=== PATIENT | male | born 1960 | race African-American/Black ===

== ENCOUNTER 2017-03-14 07:53 | Emergency (ER) | payer SELFPAY ==
[2017-03-14] MEDS ORDERED: ASPIRIN 81 MG TABLET, CHEWABLE PO ONE (07:55)
--- NOTE | 2017-03-14 08:18 | EKG REPORT ---
SEVERITY:- OTHERWISE NORMAL ECG - SINUS BRADYCARDIA : Confirmed by: Moreno Blue MD 14-Mar-2017 08:17:47
[2017-03-14 08:28] LABS: ABSOLUTE LYMPHOCYTES (AUTO) 1.3 10^3/uL (0.5-4.7); ABSOLUTE MONOCYTES (AUTO) 0.4 10^3/uL (0.1-1.4); ABSOLUTE NEUT (AUTO) 2.6 10^3/uL (1.7-8.2); BASOPHILS % (AUTO) 0.6 % (0-2); EOSINOPHILS % (AUTO) 0.8 % (0-6); HEMATOCRIT 36.8 % (37.9-51.0); HGB HCT DIFFERENCE -0.8; LYMPHOCYTES % (AUTO) 29.3 % (13-45); MEAN CORPUSCULAR HEMOGLOBIN 27.4 pg (27.0-33.4); MEAN CORPUSCULAR HGB CONC 32.5 g/dL (32.0-36.0); MEAN CORPUSCULAR VOLUME 84 fl (80-97); MONOCYTES % (AUTO) 9.9 % (3-13); RED BLOOD COUNT 4.37 10^6/uL (4.35-5.55); RED CELL DISTRIBUTION WIDTH 15.2 % (11.5-14.0); SEGMENTED NEUTROPHILS % (AUTO) 59.4 % (42-78); WHITE BLOOD COUNT 4.3 10^3/uL (4.0-10.5)
--- NOTE | 2017-03-14 08:42 | ER Document Report ---
ED General - General Mode of Arrival: Medic Information source: Patient, Emergency Med Personnel, [facility] Records TRAVEL OUTSIDE OF THE [place] 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 Patient describes the pain as a tightness. Patient states the pain is exacerbated with movement, specifically trunk rotation. Patient also admits to generalized muscle cramping and a lot of burping. EMS administered 2 nitroglycerin and 325 mg of aspirin en route, which the patient believes to have helped improved his pain. Patient also reports taking Xarelto for history of DVT, but he has not taken this since March 08 secondary to running out. Patient admits that he has picked up smoking cigarettes on occasion, but he does not buy his own. Patient also reports an increase in marijuana use. ( LINDA TOVAR) - Related Data Allergies/Adverse Reactions: shellfish derived Allergy (Verified 03/14/17 08:08) Past Medical History - Social History Smoking Status: Current Some Day Smoker Drug Abuse: Marijuana Family History: Reviewed & Not Pertinent Patient has suicidal ideation: No Patient has homicidal ideation: No - Past Medical History Cardiac Medical History: Reports: Hx DVT, Hx Hypertension Pulmonary Medical History: Reports: Hx COPD Neurological Medical History: Reports: Hx Migraine Past Surgical History: Reports: Hx Testicular Surgery - "as a child" - Immunizations Hx Diphtheria, Pertussis, Tetanus Vaccination: Yes - <5 years <LINDA TOVAR - Last Filed: 03/14/17 08:45> Review of Systems - Review of Systems Constitutional: No symptoms reported EENT: No symptoms reported Cardiovascular: See HPI, Chest pain - Tight Respiratory: No symptoms reported Gastrointestinal: See HPI, Other - Burping Genitourinary: No symptoms reported Male Genitourinary: No symptoms reported Musculoskeletal: See HPI, Other - Muscle cramping Skin: No symptoms reported Hematologic/Lymphatic: No symptoms reported Neurological/Psychological: No symptoms reported -: Yes All other systems reviewed and negative <LALINDA - Last Filed: 03/14/17 08:45> - Review of Systems Genitourinary: Other - Patient reports he has to get up at night several times to urinate. It is not large volume.. denies: No symptoms reported <NORBERTO OWUSU - Last Filed: 03/14/17 11:07> Physical Exam - General General appearance: Alert - HEENT Head: Normocephalic, Atraumatic Eyes: Normal Pupils: PERRL - Respiratory Respiratory status: No respiratory distress Chest status: Other - Mild right anterior chest wall tenderness to palpation Breath sounds: Normal - Cardiovascular Rhythm: Regular Heart sounds: Normal auscultation Murmur: No - Abdominal Distension: No distension Bowel sounds: Normal Tenderness: Tender - Right upper quadrant and epigastric tenderness to palpation Organomegaly: No organomegaly - Back Back: Normal, Nontender - Extremities General upper extremity: Normal inspection, Nontender General lower extremity: Normal inspection, Nontender - Neurological Neuro grossly intact: Yes Cognition: Normal Orientation: AAOx4 [place] Coma Scale Eye Opening: Spontaneous Man Coma Scale Verbal: Oriented [place] Coma Scale Motor: Obeys Commands [place] Coma Scale Total: 15 Speech: Normal - Psychological Associated symptoms: Normal affect, Normal mood - Skin Skin Temperature: Warm Skin Moisture: Dry Skin Color: Normal <LINDA TOVAR - Last Filed: 03/14/17 08:45> Course - Laboratory Result Diagrams: 03/14/17 08:08 03/14/17 08:08 <LINDA TOVAR - Last Filed: 03/14/17 08:45> - Laboratory Result Diagrams: 03/14/17 08:08 03/14/17 08:08 - Diagnostic Test Radiology reviewed: Image reviewed, Reports reviewed - Gallbladder ultrasound was unremarkable. - EKG Interpretation by Hi EKG shows normal: Sinus rhythm, [place], Intervals, QRS Complexes, ST-T Waves Rate: Bradycardia - 49 <NORBERTO OWUSU - Last Filed: 03/14/17 11:07> - Re-evaluation Re-evalutation: 03/14/17 11:03 After the GI cocktail the patient's symptoms eased off. His epigastric area is not tender palpate at this time. 03/14/17 11:07 The patient states he was given a 1 year's description of Xarelto. He finished it 6 days ago. He does not know if he was supposed to continue it. It has been 1 year since he developed a DVT while he was intubated and on a stretcher for a lengthy period of time. (NORBERTO OWUSU) - Vital Signs Vital signs: Temp Pulse Resp BP Pulse Ox 98.4 F 49 L 20 136/88 H 96 03/14/17 07:59 03/14/17 07:59 03/14/17 09:01 03/14/17 09:00 03/14/17 09:01 - Laboratory Laboratory results interpreted by wa: 03/14/17 03/14/17 08:08 08:08 Hgb 12.0 L Hct 36.8 L RDW 15.2 H Sodium 147.0 H Potassium 3.5 L Creatine Kinase 249 H Discharge <LINDA TOVAR - Last Filed: 03/14/17 08:45> <NORBERTO OWUSU - Last Filed: 03/14/17 11:07> - Discharge Clinical Impression: Chest wall pain, Epigastric abdominal pain GERD (gastroesophageal reflux disease) Qualifiers: Esophagitis presence: esophagitis presence not specified Qualified Code(s): K21.9 - Gastro-esophageal reflux disease without esophagitis Condition: Stable Disposition: HOME, SELF-CARE Additional Instructions: Reflux Disease (GERD): Gastro-Esophageal Reflux Disease (GERD) is caused by stomach acid refluxing back up into the esophagus. The valve at the end of the esophagus may be weak. This is common in persons with a hiatal hernia. GERD symptoms can include indigestion, chest pain, heartburn, or food "sticking." Certain foods, alcohol, and aspirin can make GERD worse. Treatment depends on the severity. Usually, antacids or acid-suppressing medicines are used. When the esophagus is acutely inflamed, the physician will often prescribe membrane-protective drugs such as Carafate. Some patients benefit from medication such as Reglan that tightens the valve at the top of the stomach. Avoid those foods that bring on your symptoms. For many people, these foods are coffee, chocolate, onions, garlic, and carbonated drinks. Don't use alcohol, aspirin, caffeine, or tobacco. Don't eat late at night -- within 4 hours of bedtime. Don't over-eat. If necessary, elevate the head of your bed about 4 inches so that stomach acid will not roll up into your esophagus. Call the doctor if you develop severe chest pain, inability to swallow fluids, fever, or worsening symptoms. EAT A BLAND DIET. TAKE ANTI-ACIDS BETWEEN MEALS AND AT BEDTIME. TAKE PRILOSEC OTC ONCE DAILY FOR THE NEXT TWO WEEKS. FOLLOW UP WITH YOUR DOCTOR NEXT WEEK FOR RECHECK AND TO DISCUSS THE XARELTO. RETURN TO THE EMERGENCY ROOM IF ANY NEW OR WORSENING SYMPTOMS. Scribe Attestation: 03/14/17 11:07 I personally performed the services described in the documentation, reviewed and edited the documentation which was dictated to the scribe in my presence, and it accurately records my words and actions. (NORBERTO OWUSU) Scribe Documentation - Scribe Written by [employer]:: Linda Tovar 03/14/2017 [id number] acting as scribe for :: Jake <LINDA TOVAR - Last Filed: 03/14/17 08:45>
[2017-03-14 08:45] LABS: ALANINE AMINOTRANSFERASE 21 U/L (21-72); ALBUMIN 3.8 g/dL (3.5-5.0); ALKALINE PHOSPHATASE 61 U/L (38-126); ANION GAP 13 (5-19); ASPARTATE AMINO TRANSFERASE 29 U/L (17-59); BILIRUBIN,DIRECT 0.3 mg/dL (0.0-0.4); BILIRUBIN,TOTAL 0.6 mg/dL (0.2-1.3); BLOOD UREA NITROGEN 11 mg/dL (7-20); CALCIUM 9.2 mg/dL (8.4-10.2); CARBON DIOXIDE 28 mmol/L (22-30); CHLORIDE 106 mmol/L (98-107); CREATINE KINASE 249 U/L (55-170); CREATININE RESULT 1.12 mg/dL (0.52-1.25); GLUCOSE 87 mg/dL (75-110); POTASSIUM 3.5 mmol/L (3.6-5.0); TOTAL PROTEIN 7.2 g/dL (6.3-8.2)
[2017-03-14] MEDS ORDERED: MAG HYDROX/AL HYDROX/SIMETH SUSP 30 ML UDCUP PO ONE (08:54)
[2017-03-14] MEDS ORDERED: LIDOCAINE 2% VISCOUS SOLN 20 ML UDCUP PO ONE (08:54)
[2017-03-14 08:56] LABS: CREATINE KINASE MB 1.88 ng/mL (<4.55)
[2017-03-14 08:57] LABS: TROPONIN I < 0.012 ng/mL
[2017-03-14 09:05] LABS: ADD ON TESTING BLD IN LAB ACKNOWLEDGE
[2017-03-14 11:32] VITALS: BP 128/89
== END 2017-03-14 11:32 | disposition home or self-care (01) ==
LOC: ER 07:53
DX: R07.89 Other chest pain (principal); R10.13 Epigastric pain; R25.2 Cramp and spasm; K21.9 Gastro-esophageal reflux disease without esophagitis; F17.200 Nicotine dependence, unspecified, uncomplicated; I10 Essential (primary) hypertension; Z79.02 Long term (current) use of antithrombotics/antiplatelets; Z86.718 Personal history of other venous thrombosis and embolism
CPT/HCPCS: 93005; 99285; 36415; 82553; 82550; 83690; 83735; 85025; 80053; 84484; 71010; 76705; 93010; J3490

== ENCOUNTER 2018-09-15 23:21 | Emergency (ER) | payer SELFPAY ==
[2018-09-15] MEDS ORDERED: IBUPROFEN 600 MG TABLET PO ONE (23:55)
--- NOTE | 2018-09-16 00:01 | ER Document Report ---
ED General - General Chief Complaint: Flu Symptoms Stated Complaint: HEADACHE, FEVER Time Seen by Provider: 09/15/18 23:55 Notes: 58-year-old male presents with 24 hours of abrupt onset fever chills fatigue headache abdominal cramping, and stuffy nose. Taking Tylenol. Constant and moderate. No shortness of breath or chest pain. No vomiting. Denies neck stiffness or photophobia. TRAVEL OUTSIDE OF THE [place] IN LAST 30 DAYS: No - Related Data Allergies/Adverse Reactions: shellfish derived Allergy (Verified 03/14/17 08:08) Past Medical History - Social History Smoking Status: Unknown if Ever Smoked Family History: Reviewed & Not Pertinent Patient has suicidal ideation: No Patient has homicidal ideation: No - Past Medical History Cardiac Medical History: Reports: Hx DVT, Hx Hypertension Denies: Hx Coronary Artery Disease, Hx Heart Attack Pulmonary Medical History: Denies: Hx Asthma, Hx Bronchitis, Hx COPD, Hx Pneumonia Neurological Medical History: Reports: Hx Migraine. Denies: Hx Cerebrovascular Accident, Hx Seizures Endocrine Medical History: Denies: Hx Diabetes Mellitus Type 1, Hx Diabetes Mellitus Type 2 Renal/ Medical History: Denies: Hx Peritoneal Dialysis Musculoskeletal Medical History: Denies Hx Arthritis Past Surgical History: Reports: Hx Testicular Surgery - "as a child" - Immunizations Hx Diphtheria, Pertussis, Tetanus Vaccination: Yes - <5 years Review of Systems - Review of Systems Notes: REVIEW OF SYSTEMS GEN: Fever myalgias malaise ENT: Sore throat, positive nasal discharge, no ear pain EYES: Denies blurry vision, eye pain, discharge CV: Denies chest pain, palpitations, edema RESP: Denies cough, shortness of breath, wheezing GI: Denies abdominal pain, nausea, vomiting, diarrhea MSK: Denies joint pain/swelling, edema, SKIN: Denies rash, skin lesions LYMPH: Denies swollen glands/lymph nodes NEURO: Denies headache, focal weakness or numbness, dizziness PSYCH: Denies depression, suicidal or homicidal ideation PHYSICAL EXAMINATION General: No acute distress, well-nourished Head: Atraumatic, normocephalic ENT: Mouth normal, oropharynx moist, mild erythema but no exudates or tonsillar enlargement Eyes: Conjunctiva normal, pupils equal, lids normal Neck: No JVD, supple, no guarding shakes his head to questions without apparent guarding. CVS: Normal rate, regular rhythm, no murmurs Resp: No resp distress, equal and normal breath sounds bilaterally GI: Nondistended, soft, no tenderness to palpation, no rebound or guarding Ext: No deformities, no edema, normal range of motion in upper and lower ext Back: No CVA or midline TTP Skin: No rash, warm Lymphatic: No lymphadeopathy noted Neuro: Awake, alert. Face symmetric. GCS 15. Physical Exam - Vital signs Vitals: Temp Pulse Resp BP Pulse Ox 99.4 F 83 22 H 137/97 H 96 09/15/18 23:31 09/15/18 23:31 09/15/18 23:31 09/15/18 23:31 09/15/18 23:31 Course - Re-evaluation Re-evalutation: 09/16/18 00:01 Influenza-like illness, doubt meningitis due to lack of meningismus and true fever at this time. Last Tylenol was 4 hours ago. Will give Motrin and test for influenza. No symptoms of pneumonia. Normal saturation. 09/16/18 01:04 Flu negative, reevaluated and doing well. Likely viral syndrome will discharge with Motrin. Was given return precautions including those for meningoencephalitis although again, I think this is very unlikely thus did not offer a lumbar puncture at this juncture. I have discussed with the patient there likely diagnosis, aftercare plan, follow -up plans and my usual and customary return precautions. They verbalized understanding of this. - Vital Signs Vital signs: Temp Pulse Resp BP Pulse Ox 99.4 F 83 22 H 137/97 H 96 09/15/18 23:31 09/15/18 23:31 09/15/18 23:31 09/15/18 23:31 09/15/18 23:31 Discharge - Discharge Clinical Impression: Viral syndrome Condition: Good Disposition: HOME, SELF-CARE Instructions: Fever ([facility]), Headache ([facility]) Additional Instructions: Please take ibuprofen every 4 hours, keep well hydrated, and return to the emergency room if your headache worsens, your neck becomes stiff have any sensitivity to light or generally not feeling better in 1-2 days.
[2018-09-16 00:58] LABS: A TYPE INFLUENZA AG NEGATIVE (NEGATIVE); B INFLUENZA AG NEGATIVE (NEGATIVE)
[2018-09-16 01:44] VITALS: BP 130/80
== END 2018-09-16 01:42 | disposition home or self-care (01) ==
LOC: ER 23:21
DX: B34.9 Viral infection, unspecified (principal); R51 Headache; R07.9 Chest pain, unspecified; R53.83 Other fatigue; R10.9 Unspecified abdominal pain; R09.89 Other specified symptoms and signs involving the circulatory and respiratory systems; I10 Essential (primary) hypertension; J02.9 Acute pharyngitis, unspecified
CPT/HCPCS: 87804; 99283

== ENCOUNTER 2018-10-10 17:15 | Emergency (ER) | payer SELFPAY ==
[2018-10-10] MEDS ORDERED: BUTALB/ACETAMINOPHEN/CAFFEINE 1 TAB EACH PO ONE (18:25)
[2018-10-10] MEDS ORDERED: AMLODIPINE BESYLATE 10 MG TABLET PO ONE (18:25)
--- NOTE | 2018-10-10 18:25 | ER Document Report ---
ED General - General Chief Complaint: High Blood Pressure Stated Complaint: HIGH BLOOD PRESSURE Time Seen by Provider: 10/10/18 18:00 Notes: Patient is a 58-year-old male with history of hypertension that presents to the emergency department for chief complaint of high blood pressure and headache. Patient states he has been having a gradual onset of a headache over the past week, has been out of his blood pressure medications for approximately 10 days he takes amlodipine 10 mg daily, he does have his metoprolol 25 mg, but has been out of the amlodipine. He describes the headache is mainly frontal, denies blurred vision, has had some nausea but no vomiting. Denies any chest pain, shortness of breath, difficulty breathing, confusion, changes in urinary patterns, denies foam in the urine, or dark urine. Past Medical History: Hypertension Past Surgical History: Denies pertinent surgical history or recent surgeries Social History: Admits to smoking cigarettes daily, denies alcohol or illicit drug use. 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 Family History: Reviewed and noncontributory for presenting illness Allergies: Reviewed, see documented allergy list. REVIEW OF SYSTEMS: Other than noted above, the 12 point review of systems was reviewed with the patient and were negative, all pertinent findings are included in the HPI. PHYSICAL EXAMINATION: Vital signs reviewed, nursing noted reviewed. GENERAL: Well-appearing, well-nourished and in no acute distress. HEAD: Atraumatic, normocephalic. EYES: Eyes appear normal, extraocular movements intact, sclera anicteric, conjunctiva are normal. PERRLA ENT: nares patent, oropharynx clear without exudates. Moist mucous membranes. NECK: Normal range of motion, supple without lymphadenopathy LUNGS: Breath sounds clear to auscultation bilaterally and equal. No wheezes rales or rhonchi. HEART: Regular rate and rhythm without murmurs ABDOMEN: Soft, nontender, normoactive bowel sounds. No rebound, guarding, or rigidity. No masses appreciated. EXTREMITIES: Nontender, good range of motion, no pitting or edema. NEUROLOGICAL: No focal neurological deficits. Moves all extremities spontaneously Motor and sensory grossly intact on exam. PSYCH: Normal mood, normal affect. SKIN: Warm, Dry, normal turgor, no rashes or lesions noted on exposed skin TRAVEL OUTSIDE OF THE [place] IN LAST 30 DAYS: No - Related Data Allergies/Adverse Reactions: shellfish derived Allergy (Verified 03/14/17 08:08) Past Medical History - Social History Smoking Status: Current Some Day Smoker Chew tobacco use (# tins/day): No Frequency of alcohol use: None Drug Abuse: None Family History: Reviewed & Not Pertinent Patient has suicidal ideation: No Patient has homicidal ideation: No - Past Medical History Cardiac Medical History: Reports: Hx DVT, Hx Hypertension Denies: Hx Coronary Artery Disease, Hx Heart Attack Pulmonary Medical History: Denies: Hx Asthma, Hx Bronchitis, Hx COPD, Hx Pneumonia Neurological Medical History: Reports: Hx Migraine. Denies: Hx Cerebrovascular Accident, Hx Seizures Endocrine Medical History: Denies: Hx Diabetes Mellitus Type 1, Hx Diabetes Mellitus Type 2 Renal/ Medical History: Denies: Hx Peritoneal Dialysis Musculoskeletal Medical History: Denies Hx Arthritis Past Surgical History: Reports: Hx Testicular Surgery - "as a child" - Immunizations Hx Diphtheria, Pertussis, Tetanus Vaccination: Yes - <5 years Course - Re-evaluation Re-evalutation: Patient seen and examined vital signs reviewed. Patient was evaluated and treated as appropriate for the patient's presenting symptoms and complaint, with consideration of any critical or life threatening conditions that may be associated with their obtained history and exam as noted above. Patient was treated with Fioricet and amlodipine 10 mg The patient was re-evaluated and was improved and stable Evaluation was most consistent with hypertension, headache, patient will be prescribed Fioricet for the headache, and ultimately prescribed 2 weeks of amlodipine so he can follow-up with his primary care physician. Plan of care was discussed with the patient at this point, after careful consideration I feel that that patient can be discharged from the emergency department, the patient was educated treatments and reasons to return to the emergency department based on their presumed diagnosis as noted above, they were advised to followup with a primary care physician in 2-3 days. Patient was agreeable to plan of care. *Note is created using voice recognition software and may contain spelling, syntax or grammatical errors. Discharge - Discharge Clinical Impression: Hypertension Qualifiers: Hypertension type: unspecified Qualified Code(s): I10 - Essential (primary) hypertension Headache Qualifiers: Headache chronicity pattern: unspecified pattern Intractability: not intractable Condition: Stable Disposition: HOME, SELF-CARE Instructions: High Blood Pressure, Requiring Treatment ([facility]), Headache ([facility]) Prescriptions: Amlodipine Besylate [Norvasc 10 mg Tablet] 10 mg PO DAILY #14 tablet Butalb/Acetaminophen/Caffeine [Fioricet (50-325-40 mg) Tablet] 1 tab PO Q6H PRN #12 tab PRN Reason: headache Referrals: [facility] [Provider Group] - Follow up in 3-5 days
[2018-10-10 19:48] VITALS: BP 169/112
== END 2018-10-10 19:45 | disposition home or self-care (01) ==
LOC: ER 17:15
DX: I10 Essential (primary) hypertension (principal); T46.1X6A Underdosing of calcium-channel blockers, initial encounter; Z91.128 Patient's intentional underdosing of medication regimen for other reason; Z91.14 Patient's other noncompliance with medication regimen; Z79.899 Other long term (current) drug therapy; R51 Headache; R11.0 Nausea; F17.210 Nicotine dependence, cigarettes, uncomplicated; F17.200 Nicotine dependence, unspecified, uncomplicated; Z91.013 Allergy to seafood
CPT/HCPCS: 99283; 82962; J3490

== ENCOUNTER 2019-09-16 16:15 | Emergency (ER) | payer SELFPAY ==
--- NOTE | 2019-09-16 17:05 | ER Document Report ---
ED Medical Screen (RME) - General Chief Complaint: Low Back Pain Stated Complaint: LOWER BACK PAIN Time Seen by Provider: 09/16/19 16:57 Mode of Arrival: Wheelchair Information source: Patient Notes: 59-year-old male presented to ED for complaint of back pain since Friday. He states a week or so ago he had a pulling sensation in his groin when he lifted something heavy. He states when that went away then he started with the low back pain. He states he does have a history of chronic back pain and high blood pressure. He states for a long time he has had some urination without feeling like he was urinating until he started urinating. This is not new. He does state he smokes a half a pack a day does not drink alcohol and smokes a little weed. I have greeted and performed a rapid initial assessment of this patient. A comprehensive ED assessment and evaluation of the patient, analysis of test results and completion of medical decision making process will be conducted by a n additional ED providers. TRAVEL OUTSIDE OF THE [place] IN LAST 30 DAYS: No - Related Data Allergies/Adverse Reactions: shellfish derived Allergy (Verified 03/14/17 08:08) Home Medications: Amlodipine, Metoprolol Past Medical History - Past Medical History Cardiac Medical History: Reports: Hx DVT, Hx Hypertension Denies: Hx Coronary Artery Disease, Hx Heart Attack Pulmonary Medical History: Denies: Hx Asthma, Hx Bronchitis, Hx COPD, Hx Pneumonia Neurological Medical History: Reports: Hx Migraine. Denies: Hx Cerebrovascular Accident, Hx Seizures Endocrine Medical History: Denies: Hx Diabetes Mellitus Type 1, Hx Diabetes Mellitus Type 2 Renal/ Medical History: Denies: Hx Peritoneal Dialysis Musculoskeltal Medical History: Denies Hx Arthritis Past Surgical History: Reports: Hx Testicular Surgery - "as a child" - Immunizations Hx Diphtheria, Pertussis, Tetanus Vaccination: Yes - <5 years Physical Exam - Vital signs Vitals: Temp Pulse Resp BP Pulse Ox 98.6 F 58 L 20 115/79 97 09/16/19 16:19 09/16/19 16:19 09/16/19 16:19 09/16/19 16:19 09/16/19 16:19 Course - Vital Signs Vital signs: Temp Pulse Resp BP Pulse Ox 98.6 F 58 L 20 115/79 97 09/16/19 16:19 09/16/19 16:19 09/16/19 16:19 09/16/19 16:19 09/16/19 16:19
[2019-09-16 17:34] LABS: APPEARANCE,URINE CLEAR; BILIRUBIN,URINE NEGATIVE (NEGATIVE); COLOR,URINE YELLOW; GLUCOSE, URINE NEGATIVE (NEGATIVE); KETONES,URINE NEGATIVE (NEGATIVE); PROTEIN,URINE NEGATIVE (NEGATIVE)
--- NOTE | 2019-09-16 17:34 | RADIOLOGY REPORT (SQ) ---
EXAM DESCRIPTION: L SPINE WHOLE COMPLETED DATE/TIME: 09/16/2019 5:23 pm REASON FOR STUDY: right back pain COMPARISON: None. NUMBER OF VIEWS: Five views including obliques. TECHNIQUE: AP, lateral, oblique, and sacral radiographic images acquired of the lumbar spine. LIMITATIONS: None. FINDINGS: MINERALIZATION: Normal. SEGMENTATION: Normal. Partial sacralization of L5, in which the left transverse pseudoarticulates wi th the sacrum. ALIGNMENT: Left lateral tilt. VERTEBRAE: Maintained height. No fracture or worrisome bone lesion. DISCS: Moderate L4-5 and mild L1-2 thru L3-4 intervertebral disc space narrowing with corresponding m arginal osteophyte formation. POSTERIOR ELEMENTS: Pedicles and facets are intact. No pars defect or posterior arch defects. HARDWARE: None in the spine. PARASPINAL SOFT TISSUES: Normal. PELVIS: Intact as visualized. No fractures or worrisome bone lesions. SI joints intact. OTHER: No other significant finding. IMPRESSION: No acute bone abnormality of the lumbar spine. Transitional anatomy with partial sacralization of L5 and multilevel spondylosis greatest at L4-5. TECHNICAL DOCUMENTATION: JOB ID: [id number]- All Rights Reserved Reading location - IP/workstation name: [email or web address]
[2019-09-16] MEDS ORDERED: CYCLOBENZAPRINE HCL 10 MG TABLET PO ONE (19:51)
[2019-09-16] MEDS ORDERED: OXYCODONE-ACETAMINOPHEN 5-325 MG TABLET PO ONE (19:51)
--- NOTE | 2019-09-16 19:53 | ER Document Report ---
ED General - General Chief Complaint: Low Back Pain Stated Complaint: LOWER BACK PAIN Time Seen by Provider: 09/16/19 16:57 Primary Care Provider: ALLISON REDDY MD [Primary Care Provider] - Follow up in 3-5 days Mode of Arrival: Wheelchair TRAVEL OUTSIDE OF THE [place] IN LAST 30 DAYS: No - HPI Notes: 59 year old male to the ED with C/O right sided low back pain that began on this past Friday and has gotten worse. He denies any lissett injury. States he has continued to work on an injured back but this morning work up and had worse pain. He is in a very active job and is often lifting heavy things. He has not taken anything for his pain. His has tried to to apply Icy Hot to his back. Denies any fevers, chills, NVD, saddle paresthesias, radiculopathy, bladder/bowel incontinence, IVDA. - Related Data Allergies/Adverse Reactions: shellfish derived Allergy (Verified 03/14/17 08:08) Home Medications: Amlodipine, Metoprolol Past Medical History - General Information source: Patient - Social History Smoking Status: Unknown if Ever Smoked Frequency of alcohol use: None Drug Abuse: None Lives with: Spouse/Significant other Family History: Reviewed & Not Pertinent Patient has suicidal ideation: No Patient has homicidal ideation: No - Past Medical History Cardiac Medical History: Reports: Hx DVT, Hx Hypertension Denies: Hx Coronary Artery Disease, Hx Heart Attack Pulmonary Medical History: Denies: Hx Asthma, Hx Bronchitis, Hx COPD, Hx Pneumonia Neurological Medical History: Reports: Hx Migraine. Denies: Hx Cerebrovascular Accident, Hx Seizures Endocrine Medical History: Denies: Hx Diabetes Mellitus Type 1, Hx Diabetes Mellitus Type 2 Renal/ Medical History: Denies: Hx Peritoneal Dialysis Musculoskeletal Medical History: Denies Hx Arthritis Past Surgical History: Reports: Hx Testicular Surgery - "as a child" - Immunizations Hx Diphtheria, Pertussis, Tetanus Vaccination: Yes - <5 years Review of Systems - Review of Systems Constitutional: denies: Chills, Fever EENT: No symptoms reported Cardiovascular: denies: Chest pain, Palpitations, Orthopnea, Dyspnea, Syncope, Dizziness, Lightheaded Respiratory: denies: Cough, Short of breath Gastrointestinal: denies: Abdominal pain, Diarrhea, Nausea, Vomiting Genitourinary: denies: Frequency, Flank pain, Hematuria Musculoskeletal: Back pain Skin: No symptoms reported Hematologic/Lymphatic: No symptoms reported Neurological/Psychological: No symptoms reported -: Yes All other systems reviewed and negative Physical Exam - Vital signs Vitals: Temp Pulse Resp BP Pulse Ox 98.6 F 58 L 20 115/79 97 09/16/19 16:19 09/16/19 16:19 09/16/19 16:19 09/16/19 16:19 09/16/19 16:19 Interpretation: Normal - General General appearance: Appears well, Alert - HEENT Head: Normocephalic, Atraumatic Eyes: Normal Pupils: PERRL - Respiratory Respiratory status: No respiratory distress Chest status: Nontender Breath sounds: Normal Chest palpation: Normal - Cardiovascular Rhythm: Regular Heart sounds: Normal auscultation Murmur: No - Abdominal Inspection: Normal Distension: No distension Bowel sounds: Normal Tenderness: Nontender Organomegaly: No organomegaly - Back Back: Tender - there is TTP over the right lumbosacral region with noted muscular spasm. there is mild midline TTP over the lumbar spine without step off or deformity. There is no SLR. Patient has increased pain with rotation, bending forward, and extending. - Extremities General upper extremity: Normal inspection, Nontender, Normal color, Normal ROM, Normal temperature General lower extremity: Normal inspection, Nontender, Normal color, Normal ROM, Normal temperature, Normal weight bearing - Neurological Neuro grossly intact: Yes Cognition: Normal Orientation: AAOx4 [place] Coma Scale Eye Opening: Spontaneous Man Coma Scale Verbal: Oriented [place] Coma Scale Motor: Obeys Commands [place] Coma Scale Total: 15 Speech: Normal Motor strength normal: LUE, RUE, LLE, RLE Sensory: Normal - Psychological Associated symptoms: Normal affect, Normal mood - Skin Skin Temperature: Warm Skin Moisture: Dry Skin Color: Normal Course - Re-evaluation Re-evalutation: Impression; RIght sided low back strain with muscle spasms. Will send home with pain control and muscle relaxants. Encouraged gentle stretching, warm compresses. PCP follow up outpatient. Patient agrees with the plan. - Vital Signs Vital signs: Temp Pulse Resp BP Pulse Ox 98.4 F 60 18 118/72 98 09/16/19 20:00 09/16/19 20:00 09/16/19 20:00 09/16/19 20:00 09/16/19 20:00 - Laboratory Laboratory results interpreted by me: 09/16/19 17:10 Urine Urobilinogen 2.0 H Leukocyte Esterase Rfl TRACE H - Diagnostic Test Radiology reviewed: Image reviewed, Reports reviewed Discharge - Discharge Clinical Impression: Spondylosis Low back strain Qualifiers: Encounter type: initial encounter Qualified Code(s): S39.012A - Strain of muscle, fascia and tendon of lower back, initial encounter Condition: Stable Disposition: HOME, SELF-CARE Instructions: Low Back Pain ([facility]), Warm Packs ([facility]) Prescriptions: Cyclobenzaprine HCl [Flexeril 5 mg Tablet] 1 - 2 tab PO TID PRN #21 tablet PRN Reason: Oxycodone HCl/Acetaminophen [Percocet 5-325 mg Tablet] 1 tab PO Q6H PRN #10 tablet PRN Reason: Forms: Return to Work Referrals: ALLISON REDDY MD [Primary Care Provider] - Follow up in 3-5 days
[2019-09-16 20:28] VITALS: BP 118/72
== END 2019-09-16 20:28 | disposition home or self-care (01) ==
LOC: ER 16:15
DX: S39.012A Strain of muscle, fascia and tendon of lower back, initial encounter (principal); X58.XXXA Exposure to other specified factors, initial encounter; M47.9 Spondylosis, unspecified; M62.830 Muscle spasm of back; I10 Essential (primary) hypertension; Z91.013 Allergy to seafood; Z79.899 Other long term (current) drug therapy
CPT/HCPCS: 72110; 81001; 87086; 99283